=== PATIENT | female | born 1955 | race American Indian/Alaskan Native ===

== ENCOUNTER 2016-11-06 15:12 | Outpatient (CLI) | payer BC ==
--- NOTE | 2016-11-07 09:13 | Ultrasound Report ---
TRANSABDOMINAL AND TRANSVAGINAL PELVIC ULTRASOUND: 11/06/16 CLINICAL: Pelvic pain. FINDINGS: Transabdominal and transvaginal pelvic ultrasound demonstrated absence of the uterus and normal vaginal cuff. Normal ovaries. The right ovary measures 2.3 x 0.8 x 1.2 cm. The left ovary measures 2.4 x 1.4 1.5 cm. No adnexal mass. No free fluid. Normal urinary bladder. IMPRESSION: Normal pelvis status post hysterectomy.
== END 2016-11-06 15:13 | disposition home or self-care (01) ==
LOC: SPVWC 15:12
PROVIDERS: ATTEND Internal Medicine
DX: R14.0 Abdominal distension (gaseous) (principal); R10.2 Pelvic and perineal pain; Z90.710 Acquired absence of both cervix and uterus
CPT/HCPCS: 76830; 76856

== ENCOUNTER 2017-03-27 09:31 | Outpatient (CLI) | payer BC ==
--- NOTE | 2017-03-27 16:11 | Mammography Report ---
BILATERAL DIGITAL SCREENING MAMMOGRAM with CAD: 03/27/17 09:31:00 CLINICAL: Routine screening. COMPARISON:03/09/16 FINDINGS: The breasts are heterogeneously dense, which may obscure small masses. No mass, architectural distortion or suspicious calcifications. IMPRESSION: No mammographic evidence of malignancy. BI-RADS CATEGORY: 1 - - Negative RECOMMENDATION: Routine mammographic screening in one year. COMMENT: Patient follow-up letters are generated by our [employer] application.
== END 2017-03-27 09:32 | disposition home or self-care (01) ==
LOC: SPVWC 09:31
PROVIDERS: ATTEND Internal Medicine
DX: Z12.31 Encounter for screening mammogram for malignant neoplasm of breast (principal)
CPT/HCPCS: 77067; G0202

== ENCOUNTER 2019-04-20 10:44 | Outpatient (CLI) | payer BC ==
--- NOTE | 2019-04-21 10:10 | Mammography Report ---
DIGITAL SCREENING MAMMOGRAM WITH CAD, 04/20/2019 INDICATION: Routine screening mammography. TECHNIQUE: Digital bilateral 2D mammography was obtained in the craniocaudal and mediolateral obliq ue projections. This examination was interpreted with the benefit of Computer-Aided Detection analysi s. COMPARISON: 04/15/2018 FINDINGS: Breast Density: The breasts are heterogeneously dense, which may obscure small masses. There is no evidence of dominant mass, suspicious calcifications or architectural distortion in eithe r breast. IMPRESSION: No mammographic evidence of malignancy. Follow up recommendation: Routine yearly BI-RADS Category 1: Negative. A "normal" or negative report should not discourage follow up or biopsy of a clinically significant f inding. A written summary of these findings will be mailed to the patient. The patient will be entered into a mammography reporting system which will generate a reminder letter for the patient's next appointmen t at the appropriate interval. The [employer] recommends yearly mammograms starting at age 40 and continuing as l bridget as a woman is in good health. Breast MRI is recommended for women with an approximate 20-25% or greater lifetime risk of breast cancer, including women with a strong family history of breast or ova fatou cancer or who have been treated for Hodgkin's disease. Signer Name: Nitin Ponce MD Signed: 04/21/2019 10:06 AM Workstation Name: [id number]
== END 2019-04-20 10:45 | disposition home or self-care (01) ==
LOC: MAMMO 10:44
PROVIDERS: ATTEND Internal Medicine
DX: Z12.31 Encounter for screening mammogram for malignant neoplasm of breast (principal)
CPT/HCPCS: 77067

== ENCOUNTER 2020-04-24 11:15 | Outpatient (CLI) | payer BC ==
--- NOTE | 2020-04-24 17:12 | Mammography Report ---
DIGITAL SCREENING MAMMOGRAM WITH CAD, 04/24/2020 CLINICAL INFORMATION / INDICATION: Routine screening mammography. SCREENING MAMMO TECHNIQUE: Digital bilateral 2D mammography was obtained in the craniocaudal and mediolateral obliqu e projections. This examination was interpreted with the benefit of Computer-Aided Detection analysis . COMPARISON: 04/20/2019, 04/15/2018 FINDINGS: Breast Density: The breasts are heterogeneously dense, which may obscure small masses. No dominant mass, suspicious calcifications, or architectural distortion in either breast. IMPRESSION: No mammographic evidence of malignancy. Follow up recommendation: Routine yearly BI-RADS Category 1: Negative. A "normal" or negative report should not discourage follow up or biopsy of a clinically significant f inding. A written summary of these findings will be mailed to the patient. The patient will be entered into a mammography reporting system which will generate a reminder letter for the patient's next appointmen t at the appropriate interval. The [employer] recommends yearly mammograms starting at age 40 and continuing as l bridget as a woman is in good health. Breast MRI is recommended for women with an approximate 20-25% or greater lifetime risk of breast cancer, including women with a strong family history of breast or ova fatou cancer or who have been treated for Hodgkin's disease. Signer Name: Nicolas Samaniego MD Signed: 04/24/2020 5:07 PM Workstation Name: [id number]
== END 2020-04-24 11:16 | disposition home or self-care (01) ==
LOC: SPVWC 11:15
PROVIDERS: ATTEND Internal Medicine
DX: Z12.31 Encounter for screening mammogram for malignant neoplasm of breast (principal)
CPT/HCPCS: 77067

== ENCOUNTER 2021-04-27 10:52 | Outpatient (CLI) | payer BC | END 2021-04-27 10:53 | disposition home or self-care (01) | LOC: SPVWC 10:52 | PROVIDERS: ATTEND Internal Medicine | DX: Z12.31 Encounter for screening mammogram for malignant neoplasm of breast (principal) | CPT/HCPCS: 77067 ==